=== PATIENT | male | born 1990 | race Two or more races ===

== ENCOUNTER 2018-09-25 09:30 | Outpatient (CLI) | payer BC | END 2018-09-25 23:59 | disposition home or self-care (01) | LOC: MRI 09:30 | DX: M51.27 Other intervertebral disc displacement, lumbosacral region (principal); M51.37 Other intervertebral disc degeneration, lumbosacral region; M25.552 Pain in left hip | CPT/HCPCS: 72148-TC ==

== ENCOUNTER 2019-07-16 04:10 | Emergency (ER) | payer BC, OTHER ==
[~2019-07-16] VITALS: Ht 175.3 cm; Wt 83.5 kg
[2019-07-16 04:11] VITALS: BP 121/75
--- NOTE | 2019-07-17 04:30 | NUR ---
REC'D NEGATIVE RESULTS BY [facility] FROM LAB. AWARE
== END 2019-07-16 05:52 | disposition home or self-care (01) ==
LOC: ER 04:14
DX: Z11.59 Encounter for screening for other viral diseases (principal)
CPT/HCPCS: 99283; C9803; U0003

== ENCOUNTER 2019-08-06 02:08 | Emergency (ER) | payer OTHER ==
[~2019-08-06] VITALS: Ht 175.3 cm; Wt 83.5 kg
[2019-08-06 02:10] VITALS: BP 131/78
== END 2019-08-06 02:46 | disposition home or self-care (01) ==
LOC: ER 02:10
DX: Z11.59 Encounter for screening for other viral diseases (principal)
CPT/HCPCS: 99283; C9803; U0003

== ENCOUNTER 2019-08-14 00:07 | Emergency (ER) | payer OTHER ==
[~2019-08-14] VITALS: Ht 175.3 cm; Wt 83.5 kg
[2019-08-14 00:07] VITALS: BP 119/75
--- NOTE | 2019-08-19 13:55 | NUR ---
LAB CALLED RE: NEGATIVE COVID RESULT
== END 2019-08-14 00:53 | disposition home or self-care (01) ==
LOC: ER 00:08
DX: Z03.818 Encounter for observation for suspected exposure to other biological agents ruled out (principal)
CPT/HCPCS: 99283; C9803; U0003

== ENCOUNTER 2019-08-27 05:12 | Emergency (ER) | payer OTHER ==
[~2019-08-27] VITALS: Ht 175.3 cm; Wt 83.5 kg
[2019-08-27 05:14] VITALS: BP 122/85
== END 2019-08-27 05:30 | disposition home or self-care (01) ==
LOC: ER 05:14
DX: Z03.818 Encounter for observation for suspected exposure to other biological agents ruled out (principal)
CPT/HCPCS: 99283; C9803; U0003

== ENCOUNTER 2019-09-04 00:23 | Emergency (ER) | payer OTHER ==
[~2019-09-04] VITALS: Ht 175.3 cm; Wt 83.5 kg
[2019-09-04 00:24] VITALS: BP 120/64
== END 2019-09-04 00:35 | disposition home or self-care (01) ==
LOC: ER 00:24
DX: Z03.818 Encounter for observation for suspected exposure to other biological agents ruled out (principal)
CPT/HCPCS: 99283; C9803; U0003

== ENCOUNTER 2019-09-14 19:08 | Emergency (ER) | payer OTHER ==
[~2019-09-14] VITALS: Ht 175.3 cm; Wt 80.7 kg
[2019-09-14 19:20] VITALS: BP 128/79
== END 2019-09-14 19:37 | disposition home or self-care (01) ==
LOC: ER 19:10
DX: Z20.828 Contact with and (suspected) exposure to other viral communicable diseases (principal)
CPT/HCPCS: 99283; C9803; U0003

== ENCOUNTER 2019-09-17 01:10 | Outpatient (CLI) | payer BC ==
[2019-09-18 03:25] LABS: *RUBEOLA AB (IGG) 80.6 AU/mL (Immune >16.4)
== END 2019-09-17 23:59 | disposition home or self-care (01) ==
LOC: LAB 01:10
PROVIDERS: ATTEND Legal Medicine
DX: Z00.00 Encounter for general adult medical examination without abnormal findings (principal)
CPT/HCPCS: 86317; 86735; 86762; 86765; 86787; 87340

== ENCOUNTER 2019-09-18 00:37 | Emergency (ER) | payer BC, OTHER ==
[~2019-09-18] VITALS: Ht 175.3 cm; Wt 80.7 kg
[2019-09-18 00:38] VITALS: BP 124/62
== END 2019-09-18 01:05 | disposition home or self-care (01) ==
LOC: ER 00:38
DX: Z20.828 Contact with and (suspected) exposure to other viral communicable diseases (principal)
CPT/HCPCS: 99283; C9803; U0003

== ENCOUNTER 2019-10-01 01:19 | Emergency (ER) | payer OTHER ==
[~2019-10-01] VITALS: Ht 175.3 cm; Wt 80.7 kg
[2019-10-01 01:21] VITALS: BP 131/63
--- NOTE | 2019-10-01 01:50 | NUR ---
COVID SWAB DONE AND SENT TO LAB.
== END 2019-10-01 01:50 | disposition home or self-care (01) ==
LOC: ER 01:20
DX: Z20.828 Contact with and (suspected) exposure to other viral communicable diseases (principal)
CPT/HCPCS: 99283; C9803; U0003

== ENCOUNTER 2019-10-08 23:36 | Emergency (ER) | payer OTHER ==
[~2019-10-08] VITALS: Ht 175.3 cm; Wt 80.7 kg
[2019-10-08 23:41] VITALS: BP 129/78
--- NOTE | 2019-10-08 23:57 | NUR ---
COVID SWAB COLLECTED AND SENT TO [facility]
== END 2019-10-08 23:59 | disposition home or self-care (01) ==
LOC: ER 23:40
DX: Z20.828 Contact with and (suspected) exposure to other viral communicable diseases (principal)
CPT/HCPCS: 99283; C9803; U0003

== ENCOUNTER 2019-10-17 03:21 | Emergency (ER) | payer OTHER ==
[~2019-10-17] VITALS: Ht 175.3 cm; Wt 80.7 kg
[2019-10-17 03:23] VITALS: BP 129/75
--- NOTE | 2019-10-18 09:38 | NUR ---
COVID RESULT: NEGATIVE
== END 2019-10-17 03:40 | disposition home or self-care (01) ==
LOC: ER 03:26
DX: Z20.828 Contact with and (suspected) exposure to other viral communicable diseases (principal)
CPT/HCPCS: 99283; C9803; U0003